=== PATIENT | female | born 1955 | race Hispanic/Latino ===

== ENCOUNTER 2017-09-28 18:13 | Emergency (ER) | payer OTHER ==
[2017-09-28 20:02] LABS: Basophils # (Auto) 0.1 K/mm3 (0.0-0.1); Basophils % (Auto) 0.7 % (0.0-1.8); Eosinophils # (Auto) 0.1 K/mm3 (0.0-0.4); Eosinophils % (Auto) 1.4 % (0.0-4.3); Hematocrit 20.3 % (30.3-42.9); Hemoglobin 6.6 gm/dl (10.1-14.3); Lymphocytes # (Auto) 1.6 K/mm3 (1.2-5.4); Lymphocytes % (Auto) 22.8 % (13.4-35.0); Mean Corpuscular HGB Conc 32 % (30-34); Monocytes # (Auto) 0.5 K/mm3 (0.0-0.8); Monocytes % (Auto) 6.9 % (0.0-7.3); Platelet Count 278 K/mm3 (140-440); Red Blood Count 3.03 M/mm3 (3.65-5.03); Red Cell Distribution Width 18.5 % (13.2-15.2)
[2017-09-28 20:03] LABS: Mean Corpuscular Hemoglobin 22 pg (28-32); Mean Corpuscular Volume 67 fl (79-97)
[2017-09-28 20:13] LABS: INR 1.01 (0.87-1.13)
[2017-09-28 20:17] LABS: Alanine Aminotransferase 9 units/L (7-56); Albumin 3.9 g/dL (3.9-5)
[2017-09-28 20:33] LABS: BUN/Creatinine Ratio 20; Blood Urea Nitrogen 12 mg/dL (7-17); Calcium 8.9 mg/dL (8.4-10.2); Hemolysis Index 0; Lipase 17 units/L (13-60)
--- NOTE | 2017-09-28 21:29 | Emergency Department Report ---
ED General Adult HPI - General Chief complaint: Chest Pain Stated complaint: ABNORMAL LABS Time Seen by Provider: 09/28/17 21:25 Source: patient Mode of arrival: Ambulatory Limitations: No Limitations - History of Present Illness Initial comments: 61-year-old woman sent for treatment of severe anemia upon notification by her local physician's office several days ago, giving a history of chronic recurrent vaginal bleeding for the past 5-6 years since menopause, had first examination at a local clinic 1 week ago, and blood work at that time showed patient to be significantly anemic, patient was contacted Sunday, and presents today at recommendation of physician for emergency evaluation and treatment. She bleeds intermittently, but persistently on a recurrent basis, and has never had any prior gynecologic evaluation for this in the time since menopause, due to lack of insurance. She was have follow-up examination, because physician at the clinic had performed a Pap smear, which caused bleeding at that time, but bleeding has since stopped over the past 3 days. Patient has secondary symptoms of chronic lightheadedness, particularly when she stands, she gets intermittent chest pains as well, both at rest and with standing. intake vital signs noted be stable with temperature 98.1, vital signs were stable with blood pressure of 123/59, pulse rate 103, respiratory rate 20, 100% oxygenation on room air. She is experiencing no difficulties at this time, has not had any bleeding for several days. Past medical history significant for type 2 diabetes mellitus, patient is also hypertensive. She has no prior gastrointestinal history, other than symptoms typical of gastroparesis, for which she has had endoscopy by addictions counselor approximately 8 years ago, which was negative, no history of gastritis or ulcers , and she has also had colonoscopy with no findings of tumors, diverticulitis, or diverticuli. She gives no history of hematemesis, no melena, no hematochezia. - Related Data Previous Rx's Medication Instructions Recorded Last Taken Type Ciprofloxacin HCl [Cipro] 500 mg PO BID #20 tablet 09/29/17 Unknown Rx Allergies Allergy/AdvReac Type Severity Reaction Status Date / Time No Known Allergies Allergy Verified 09/28/17 23:42 ED Review of Systems ROS: Stated complaint: ABNORMAL LABS Other details as noted in HPI ED Past Medical Hx - Past Medical History Previous Medical History?: Yes Hx Hypertension: Yes Hx Diabetes: Yes Additional medical history: Anemia - Surgical History Past Surgical History?: Yes Hx Cholecystectomy: Yes Additional Surgical History: B/L hip eplacement, C sec X2 - Social History Smoking Status: Never Smoker Substance Use Type: None - Medications Home Medications: Home Medications Medication Instructions Recorded Confirmed Last Taken Type Ciprofloxacin HCl [Cipro] 500 mg PO BID #20 tablet 09/29/17 Unknown Rx ED Physical Exam - General Limitations: No Limitations ED Course Vital Signs 09/28/17 09/28/17 09/28/17 19:23 21:16 22:00 Temperature 36.7 C 36.8 C Pulse Rate 103 H 99 H 91 H Respiratory 20 16 17 Rate Blood Pressure 123/59 133/49 Blood Pressure 133/49 [Left] O2 Sat by Pulse 100 100 100 Oximetry 09/29/17 09/29/17 09/29/17 00:30 00:45 01:15 Temperature 37.0 C 37.0 C 36.9 C Pulse Rate 100 H 100 H 94 H Respiratory 16 17 15 Rate Blood Pressure 129/45 113/55 128/43 Blood Pressure [Left] O2 Sat by Pulse 100 100 100 Oximetry 09/29/17 09/29/17 09/29/17 01:45 01:57 02:12 Temperature 36.8 C 36.8 C 36.8 C Pulse Rate 91 H 91 H 89 Respiratory 17 17 19 Rate Blood Pressure 122/44 122/44 115/54 Blood Pressure [Left] O2 Sat by Pulse 100 100 100 Oximetry 09/29/17 09/29/17 09/29/17 02:27 02:57 03:27 Temperature 36.8 C 36.8 C 36.8 C Pulse Rate 96 H 91 H 90 Respiratory 17 15 16 Rate Blood Pressure 112/55 119/61 121/59 Blood Pressure [Left] O2 Sat by Pulse 100 100 100 Oximetry 09/29/17 04:06 Temperature 36.8 C Pulse Rate 92 H Respiratory 17 Rate Blood Pressure 122/55 Blood Pressure [Left] O2 Sat by Pulse 100 Oximetry ED Medical Decision Making - Lab Data Result diagrams: 09/28/17 19:35 09/28/17 19:35 - EKG Data -: EKG Interpreted by Me (sinus tachycardia noted on EKG, pulse rate 104, but otherwise no significan) EKG shows normal: sinus rhythm, axis (normal QRS axis at 88), intervals ( normal QT interval at 440 milliseconds corrected, normal VA interval), QRS complexes (QRS complex is normal), ST-T waves (nonspecific ST-T wave flattening , no significant elevations or depressions,) - EKG Data When compared to previous EKG there are: no significant change (prior tracing of 02/25/2016 was normal.) - Medical Decision Making Patient has had a significant anemia at examination, which corroborates her finding in the office, and was transfused with 2 units of packed cells, which she tolerated well with no acute reaction, and reportedly feels noticeably better. She is clinically stable, ready for discharge, and can follow with her clinic physician for further care based on the results of her Pap smear examination. She also has a urinary tract infection with clumping white cells, which would be suggestive of pyelonephritis, and she will be treated with ciprofloxacin, with initial dose of Levaquin provided in the emergency department prior to discharge.. Critical Care Time: No Critical care attestation.: If time is entered above; I have spent that time in minutes in the direct care of this critically ill patient, excluding procedure time. ED Disposition Clinical Impression: UTI (urinary tract infection), Pyelonephritis Anemia Qualifiers: Anemia type: iron deficiency Iron deficiency anemia type: chronic blood loss Qualified Code(s): D50.0 - Iron deficiency anemia secondary to blood loss ( chronic) Disposition: DC-01 TO HOME OR SELFCARE Is pt being admited?: No Does the pt Need Aspirin: No Condition: Stable Instructions: Iron Deficiency Anemia (ED) Prescriptions: Ciprofloxacin HCl [Cipro] 500 mg PO BID #20 tablet Referrals: PRIMARY CARE, [Primary Care Provider] - 3-5 Days Time of Disposition: 04:36
[2017-09-28] MEDS ORDERED: NACL 0.9% 500 ML 500 ML IV ONE (22:45)
[2017-09-28] MEDS ORDERED: NACL 0.9% 1000 ML 1,000 ML ONE (23:29)
[2017-09-29 01:16] LABS: Bacteria,Urine 4+ /HPF (Negative); Bilirubin,Urine NEG (Negative); Blood,Urine SM (Negative); Color,Urine Yellow (Yellow); Urobilinogen,Urine < 2.0 mg/dL (<2.0)
[2017-09-29 01:24] LABS: WBC,Urine > 182.0 /HPF (0.0-6.0)
[2017-09-29 04:06] VITALS: BP 122/55
[2017-09-29] MEDS ORDERED: LEVAQUIN PO ONE (05:01)
== END 2017-09-29 05:15 | disposition home or self-care (01) ==
LOC: ED 18:13
DX: D50.0 Iron deficiency anemia secondary to blood loss (chronic) (principal); N39.0 Urinary tract infection, site not specified; N10 Acute pyelonephritis; E11.9 Type 2 diabetes mellitus without complications; I10 Essential (primary) hypertension; Z86.2 Personal history of diseases of the blood and blood-forming organs and certain disorders involving the immune mechanism; Z90.49 Acquired absence of other specified parts of digestive tract
CPT/HCPCS: 36415; 36430; 80053; 81001; 83690; 84484; 85025; 85610; 85730; 86850; 86900; 86901; 86920; 93005; 93010; 96360; 96361; 99284; J7030; P9016

== ENCOUNTER 2017-11-06 10:43 | Inpatient (IN) | payer SELFPAY ==
--- NOTE | 2017-11-06 13:34 | Emergency Department Report ---
ED General Adult HPI - General Chief complaint: Vaginal Bleeding Stated complaint: VAG BLEEDING Time Seen by Provider: 11/06/17 13:29 Source: patient, family Mode of arrival: Wheelchair Limitations: No Limitations - History of Present Illness Initial comments: 62-year-old female with a history of diabetes, hypertension, and anemia presents with a complaint of weakness. Patient describes shortness of breath at rest as well as with exertional activity. Patient denies any chest pain. Patient has had no fever. Patient states that she has followed up with Dr. Khari Hill and has not been contacted regarding her having a D&C which had been discussed. Patient states that her vaginal bleeding has been persistent since mid September and had ceased 2 days ago. Patient denies any syncopal episodes. Patient complains of feeling lightheaded however. Patient states when having a bowel movement yesterday she noted blood in her stool as well. Patient denies any hematemesis however. - Related Data Previous Rx's Medication Instructions Recorded Last Taken Type Ciprofloxacin HCl [Cipro] 500 mg PO BID #20 tablet 09/29/17 Unknown Rx Allergies Allergy/AdvReac Type Severity Reaction Status Date / Time No Known Allergies Allergy Verified 09/28/17 23:42 ED Review of Systems ROS: Stated complaint: VAG BLEEDING Other details as noted in HPI Constitutional: malaise, weakness. denies: chills, fever Eyes: denies: eye pain, eye discharge, vision change ENT: denies: ear pain, throat pain Respiratory: denies: cough, shortness of breath, wheezing Cardiovascular: denies: chest pain, palpitations Endocrine: no symptoms reported Gastrointestinal: other (jaundice) Genitourinary: other (vaginal bleeding) Musculoskeletal: denies: back pain, joint swelling, arthralgia Skin: denies: rash, lesions Neurological: denies: headache, weakness, paresthesias Psychiatric: denies: anxiety, depression Hematological/Lymphatic: denies: easy bleeding, easy bruising ED Past Medical Hx - Past Medical History Hx Hypertension: Yes Hx Diabetes: Yes Additional medical history: Anemia - Surgical History Hx Cholecystectomy: Yes Additional Surgical History: B/L hip eplacement, C sec X2 - Social History Smoking Status: Never Smoker Substance Use Type: None - Medications Home Medications: Home Medications Medication Instructions Recorded Confirmed Last Taken Type Ciprofloxacin HCl [Cipro] 500 mg PO BID #20 tablet 09/29/17 Unknown Rx ED Physical Exam - General Limitations: No Limitations General appearance: alert, other (pale; uncomfortable; ) - Head Head exam: Present: atraumatic, normocephalic - Eye Eye exam: Present: normal appearance, other (pale conjunctiva) - ENT ENT exam: Present: mucous membranes dry - Neck Neck exam: Present: normal inspection, other (supple). Absent: lymphadenopathy - Respiratory Respiratory exam: Present: normal lung sounds bilaterally. Absent: respiratory distress - Cardiovascular Cardiovascular Exam: Present: regular rate, normal rhythm. Absent: systolic murmur, diastolic murmur, rubs, gallop - GI/Abdominal GI/Abdominal exam: Present: soft, normal bowel sounds - Rectal Rectal exam: Present: normal rectal tone, heme (-) stool (brown stool) - External exam: Present: normal external exam. Absent: bleeding - Extremities Exam Extremities exam: Present: normal inspection - Back Exam Back exam: Present: normal inspection - Neurological Exam Neurological exam: Present: alert, oriented X3 - Psychiatric Psychiatric exam: Present: normal affect, normal mood - Skin Skin exam: Present: warm, dry, intact, normal color. Absent: rash ED Course Vital Signs 11/06/17 11/06/17 11/06/17 11:00 13:33 13:46 Temperature 97.8 F Pulse Rate 106 H 107 H Respiratory 18 18 Rate Blood Pressure 172/62 O2 Sat by Pulse 100 97 Oximetry 11/06/17 11/06/17 11/06/17 14:01 14:15 14:18 Temperature 97.8 F Pulse Rate 104 H 105 H Respiratory 11 L 14 Rate Blood Pressure 121/35 O2 Sat by Pulse 98 Oximetry ED Medical Decision Making - Lab Data Result diagrams: 11/06/17 13:44 11/06/17 13:44 - Medical Decision Making Patient is not having any active vaginal bleeding at the current time and has a guaiac test that was negative as well for active bleeding. patient is noted to have a hemoglobin which is 3.6 and patient type and cross for [address] Khari Hill [facility] occurred. Patient to be admitted to the hospitalist service for continued management and treatment. - Differential Diagnosis Anemia; Dehydration; Arrythmia; Critical Care Time: Yes Critical care time in (mins) excluding proc time.: 38 Critical care attestation.: If time is entered above; I have spent that time in minutes in the direct care of this critically ill patient, excluding procedure time. Critical Care time includes time spent on direct bedside care, frequent reassessments, and physician consultation. ED Disposition Clinical Impression: Pyelonephritis, Hyponatremia Anemia Qualifiers: Anemia type: unspecified type Qualified Code(s): D64.9 - Anemia, unspecified UTI (urinary tract infection) Qualifiers: Urinary tract infection type: acute cystitis Hematuria presence: without hematuria Qualified Code(s): N30.00 - Acute cystitis without hematuria Disposition: OP ADMIT IP TO THIS HOSP Is pt being admited?: Yes Condition: Fair Referrals: PRIMARY CARE, [Primary Care Provider] - 3-5 Days Time of Disposition: 14:50
[2017-11-06 14:01] LABS: Basophils # (Auto) 0.1 K/mm3 (0.0-0.1); Basophils % (Auto) 0.6 % (0.0-1.8); Eosinophils % (Auto) 0.1 % (0.0-4.3); Lymphocytes # (Auto) 2.5 K/mm3 (1.2-5.4); Lymphocytes % (Auto) 15.5 % (13.4-35.0); Mean Corpuscular HGB Conc 29 % (30-34); Monocytes % (Auto) 6.3 % (0.0-7.3); Platelet Count 365 K/mm3 (140-440); Red Blood Count 1.85 M/mm3 (3.65-5.03); Red Cell Distribution Width 19.4 % (13.2-15.2)
[2017-11-06 14:05] LABS: Bacteria,Urine 1+ /HPF (Negative); Bilirubin,Urine NEG (Negative); Blood,Urine SM (Negative); Color,Urine Yellow (Yellow); Mucus,Urine FEW /HPF; Protein,Urine <15 mg/dL mg/dL (Negative); Urobilinogen,Urine < 2.0 mg/dL (<2.0)
[2017-11-06 14:07] LABS: WBC,Urine > 182.0 /HPF (0.0-6.0)
[2017-11-06 14:14] LABS: INR 1.17 (0.87-1.13)
[2017-11-06 14:15] LABS: BUN/Creatinine Ratio 24; Blood Urea Nitrogen 22 mg/dL (7-17); Calcium 8.7 mg/dL (8.4-10.2); Hemolysis Index 0
[2017-11-06 14:19] LABS: Alanine Aminotransferase 6 units/L (7-56); Albumin 3.9 g/dL (3.9-5)
[2017-11-06 14:20] LABS: Bilirubin,Direct < 0.2 mg/dL (0-0.2); Hemoglobin 3.6 gm/dl (10.1-14.3)
[2017-11-06 14:21] LABS: Hematocrit 12.5 % (30.3-42.9); Mean Corpuscular Hemoglobin 19 pg (28-32); Mean Corpuscular Volume 68 fl (79-97)
--- NOTE | 2017-11-06 14:40 | History and Physical Report ---
History of Present Illness Chief complaint: Im bleeding, and I feel weak History of present illness: 62 YO Female with DM, HTN, Anemia presents to ED for evaluation. Pt states that she has experienced generalized weakness for the past 1 month, as well as vaginal bleeding for the past 3 weeks. Pt acknowledges decreased exercise tolerance, shortness of breath as well. Pt denies fever, chills, CP, Palpitations, NVD, Trauma, BRBPR, unintentional weight loss, night sweats, productive cough, or known recent ill contacts or foreign travel. PT seen and evaluated in ED and found to have UTI, Sepsis, Acidosis, and Symptomatic anemia. Pt admitted to medical floor and initiated on Sepsis protocol, and well as PRBC transfusion. Past History Past Medical History: diabetes, hypertension Past Surgical History: cholecystectomy, , total hip replacement Social history: , lives with family. denies: smoking, alcohol abuse, prescription drug abuse Family history: diabetes, hypertension Medications and Allergies Allergies Allergy/AdvReac Type Severity Reaction Status Date / Time No Known Allergies Allergy Verified 09/28/17 23:42 Home Medications Medication Instructions Recorded Confirmed Last Taken Type Insulin Glargine,Hum.rec.anlog 15 units SUB-Q HS 11/06/17 11/06/17 Unknown History [Lantus Solostar] Insulin Lispro [Humalog 100 0 units SUB-Q AC 11/06/17 11/06/17 Unknown History UNITS/ML Kwikpen] Lisinopril [Zestril] 20 mg PO QDAY 11/06/17 11/06/17 11/06/17 History Review of Systems Constitutional: weakness, lethargy, no weight loss, no weight gain, no chills Ears, nose, mouth and throat: no ear discharge, no tinnitis, no decreased hearing, no nose pain, no nasal congestion, no nasal discharge Cardiovascular: lightheadedness, shortness of breath, decreased exercise tolerance, no chest pain, no orthopnea, no rapid/irregular heart beat, no syncope, no paroxysmal nocturnal dyspnea Respiratory: no cough, no cough with sputum, no excessive sputum, no hemoptysis Gastrointestinal: no nausea, no vomiting, no diarrhea, no constipation Genitourinary Female: other (vaginal bleeding), no pelvic pain, no flank pain Rectal: no pain, no incontinence, no bleeding Musculoskeletal: no neck stiffness, no neck pain, no shooting arm pain, no arm numbness/tingling, no low back pain, no shooting leg pain Integumentary: no rash, no pruritis, no redness, no sores, no wounds Neurological: no transient paralysis, no paralysis, no weakness, no parathesias , no numbness, no tingling, no seizures Psychiatric: no anxiety, no memory loss, no change in sleep habits, no sleep disturbances, no insomnia, no hypersomnia Endocrine: no cold intolerance, no heat intolerance, no polyphagia, no excessive thirst, no polydipsia, no polyuria Hematologic/Lymphatic: no easy bruising, no easy bleeding, no lymphadenopathy, no lymphedema Allergic/Immunologic: no urticaria, no allergic rhinitis, no wheezing Exam - Constitutional Vitals: Temp Pulse Resp BP Pulse Ox 97.8 F 105 H 14 121/35 98 11/06/17 14:18 11/06/17 14:15 11/06/17 14:15 11/06/17 14:15 11/06/17 14:15 General appearance: Present: mild distress - EENT Eyes: Present: PERRL (conjunctival pallor) ENT: hearing intact, clear oral mucosa - Neck Neck: Present: supple, normal ROM - Respiratory Respiratory effort: normal Respiratory: bilateral: CTA - Cardiovascular Heart Sounds: Present: S1 & S2. Absent: rub, click - Extremities Extremities: pulses symmetrical, No edema Peripheral Pulses: within normal limits - Abdominal General gastrointestinal: Present: soft, non-tender, non-distended, normal bowel sounds Female genitourinary: Present: normal - Integumentary Integumentary: Present: clear, warm, dry, clammy, pale - Musculoskeletal Musculoskeletal: generalized weakness - Psychiatric Psychiatric: appropriate mood/affect, intact judgment & insight - Neurologic Neurologic: CNII-XII intact, moves all extremities Results - Labs CBC & Chem 7: 11/06/17 13:44 11/06/17 13:44 Labs: Abnormal lab results 11/06/17 11/06/17 11/06/17 Range/Units 13:34 13:44 13:44 WBC 15.8 H (4.5-11.0) K/mm3 RBC 1.85 L (3.65-5.03) M/mm3 Hgb 3.6 L* (10.1-14.3) gm/dl Hct 12.5 L* (30.3-42.9) % MCV 68 L (79-97) fl MCH 19 L (28-32) pg MCHC 29 L (30-34) % RDW 19.4 H (13.2-15.2) % Calvert # 1.0 H (0.0-0.8) K/mm3 Seg Neutrophils % 77.5 H (40.0-70.0) % Seg Neutrophils # 12.3 H (1.8-7.7) K/mm3 PT (12.2-14.9) Sec. INR (0.87-1.13) APTT (24.2-36.6) Sec. Sodium 133 L (137-145) mmol/L Chloride 94.4 L (98-107) mmol/L Carbon Dioxide 18 L (22-30) mmol/L BUN 22 H (7-17) mg/dL Glucose 331 H (65-100) mg/dL ALT (7-56) units/L Total Creatine Kinase (30-135) units/L Urine WBC (Auto) > 182.0 H (0.0-6.0) /HPF 11/06/17 11/06/17 11/06/17 Range/Units 13:44 13:44 13:44 WBC (4.5-11.0) K/mm3 RBC (3.65-5.03) M/mm3 Hgb (10.1-14.3) gm/dl Hct (30.3-42.9) % MCV (79-97) fl MCH (28-32) pg MCHC (30-34) % RDW (13.2-15.2) % Calvert # (0.0-0.8) K/mm3 Seg Neutrophils % (40.0-70.0) % Seg Neutrophils # (1.8-7.7) K/mm3 PT 15.5 H (12.2-14.9) Sec. INR 1.17 H (0.87-1.13) APTT 20.0 L (24.2-36.6) Sec. Sodium (137-145) mmol/L Chloride (98-107) mmol/L Carbon Dioxide (22-30) mmol/L BUN (7-17) mg/dL Glucose (65-100) mg/dL ALT 6 L (7-56) units/L Total Creatine Kinase 20 L (30-135) units/L Urine WBC (Auto) (0.0-6.0) /HPF Assessment and Plan - Patient Problems (1) Sepsis Current Visit: Yes Status: Acute Qualifiers: Sepsis type: sepsis due to unspecified organism Qualified Code(s): A41.9 - Sepsis, unspecified organism Plan to address problem: IV antibiotic therapy, monitor uop q shift, citation, serial lactic acid, blood cultures, chest x ray, urinalysis. (2) Acidosis Current Visit: Yes Status: Acute Plan to address problem: IVF resuscitation therapy, treat sepsis (3) Anemia Current Visit: Yes Status: Acute Qualifiers: Anemia type: unspecified type Qualified Code(s): D64.9 - Anemia, unspecified (4) UTI (urinary tract infection) Current Visit: Yes Status: Acute Qualifiers: Urinary tract infection type: acute cystitis Hematuria presence: without hematuria Qualified Code(s): N30.00 - Acute cystitis without hematuria Plan to address problem: IV antibiotic therapy, urinalysis, (5) DVT prophylaxis Current Visit: Yes Status: Acute Plan to address problem: SCD to BLE while in bed.
[2017-11-06] MEDS ORDERED: NACL 0.9% 1000 ML IV ONE (14:41)
[2017-11-06] MEDS ORDERED: ZOFRAN IV PRN (14:41)
[2017-11-06] MEDS ORDERED: PROVENTIL IH PRN (14:41)
[2017-11-06] MEDS ORDERED: SODIUM CHLORIDE FLUSH SYRINGE 10 ML IV PRN (14:41)
[2017-11-06] MEDS ORDERED: TYLENOL PO PRN (14:41)
[2017-11-06] MEDS ORDERED: ZOFRAN IV ONE (14:51)
[2017-11-06] MEDS ORDERED: MORPHINE IV ONE (14:51)
[2017-11-06] MEDS ORDERED: NACL 0.9% 500 ML 500 ML IV ONE (15:00)
[2017-11-06] MEDS ORDERED: NACL 0.9% 250ML 250 ML ONE (17:04)
--- NOTE | 2017-11-06 17:20 | Ultrasound Report ---
FINAL REPORT EXAM: US PELVIC COMPLETE HISTORY: vaginal bleeding TECHNIQUE: Grayscale and color doppler ultrasound imaging of the pelvis was performed transabdominally. PRIORS: None. FINDINGS: Uterus: The uterus was not well seen. The visualized portions demonstrate no evidence of focal mass. The width of the uterus measures 5.3 centimeters. The uterus was not well seen in longitudinal imaging. Endometrium: The endometrium was not seen. Ovaries: The ovaries were not seen. Free fluid: None. IMPRESSION: Limited transabdominal pelvic ultrasound.
--- NOTE | 2017-11-06 17:22 | Ultrasound Report ---
FINAL REPORT EXAM: US TRANSVAGINAL HISTORY: vaginal bleeidng TECHNIQUE: Grayscale and color doppler ultrasound imaging of the pelvis was performed transvaginally. PRIORS: None. FINDINGS: Uterus: Multiple calcifications are seen within the cervix and lower uterine segment. The uterus measures 8.2 x 3.7 x 4.8 centimeters. Endometrium: The endometrium is not well seen. Ovaries: The ovaries are normal in echogenicity without cyst or mass. Normal flow is seen to the ovaries. The right ovary measures 1.9 x 1.2 x 1.2 centimeters. The left ovary measures 2.2 x 1.3 x 1.3 centimeters. Free fluid: Trace amount of free fluid was seen. IMPRESSION: Calcifications in the lower uterine segment and cervix may be related to calcifying fibroids versus phleboliths. Endometrium not well seen. Minimal free fluid the pelvis is likely physiologic.
[2017-11-06] MEDS ORDERED: PERCOCET 5/325 PO ONE (17:32)
[2017-11-06] MEDS ORDERED: PERCOCET 5/325 ONE (17:39)
[2017-11-06] MEDS: SODIUM CHLORIDE FLUSH SYRINGE 10 ML IV SCH (22:52)
[2017-11-07 07:11] LABS: Hematocrit 21.3 % (30.3-42.9); Mean Corpuscular HGB Conc 33 % (30-34); Mean Corpuscular Volume 78 fl (79-97); Platelet Count 209 K/mm3 (140-440); Red Blood Count 2.74 M/mm3 (3.65-5.03)
[2017-11-07 07:13] LABS: Mean Corpuscular Hemoglobin 25 pg (28-32); Red Cell Distribution Width 22.6 % (13.2-15.2)
[2017-11-07 07:17] LABS: Basophils # (Auto) 0.1 K/mm3 (0.0-0.1); Basophils % (Auto) 0.8 % (0.0-1.8); Eosinophils # (Auto) 0.2 K/mm3 (0.0-0.4); Eosinophils % (Auto) 2.1 % (0.0-4.3); Lymphocytes # (Auto) 1.4 K/mm3 (1.2-5.4); Monocytes # (Auto) 0.7 K/mm3 (0.0-0.8); Monocytes % (Auto) 9.4 % (0.0-7.3)
[2017-11-07] MEDS: HumaLOG SUB-Q SCH ×4 (07:30→22:58)
[2017-11-07] MEDS: ROCEPHIN/NS 1 GM/50 ML 1 GM/50 ML BAG IV SCH ×2 (07:33→15:11)
[2017-11-07] MEDS: SODIUM CHLORIDE FLUSH SYRINGE 10 ML IV SCH ×2 (11:29→22:03)
[2017-11-07 14:31] LABS: Hematocrit 27.3 % (30.3-42.9); Hemoglobin 9.1 gm/dl (10.1-14.3)
[2017-11-07] MEDS ORDERED: PERCOCET 5/325 PO PRN (16:31)
--- NOTE | 2017-11-07 18:20 | Consultation ---
History of Present Illness Consult date: 11/07/17 Requesting physician: ARACELY PHIPPS Reason for consult: menorrhagia, other (Post menopausal bleeding) History of present illness: Pt is a 62yo WF LMP 10 years ago presents to ED for evaluation of post menopausal bleeding. Pt states that she has experienced generalized weakness for the past 1 month, as well as vaginal bleeding for the past 3 weeks. Pt acknowledges decreased exercise tolerance, shortness of breath as well. Pt denies fever, chills, CP, Palpitations, NVD, Trauma, BRBPR, unintentional weight loss, night sweats, productive cough, or known recent ill contacts or foreign travel. PT seen and evaluated in ED and found to have UTI, Sepsis, Acidosis, and Symptomatic anemia. She is admitted to medical floor and initiated on Sepsis protocol, and well as PRBC transfusion. Her admission H/H was 3.6/12.5 and now 9.1/27.3 after her blood transfusion, and is feeling much better. Her bleeding has subsided. She has been seeing me at [facility] and is scheduled for a Hysteroscopy with D&C for later this month. 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 History: fibroids Family/Genetic History: diabetes, hypertension Social history: no significant social history, Medications and Allergies Allergies Allergy/AdvReac Type Severity Reaction Status Date / Time No Known Allergies Allergy Verified 09/28/17 23:42 Home Medications Medication Instructions Recorded Confirmed Last Taken Type Insulin Glargine,Hum.rec.anlog 15 units SUB-Q HS 11/06/17 11/06/17 Unknown History [Lantus Solostar] Insulin Lispro [Humalog 100 0 units SUB-Q AC 11/06/17 11/06/17 Unknown History UNITS/ML Kwikpen] Lisinopril [Zestril] 20 mg PO QDAY 11/06/17 11/06/17 11/06/17 History Active Meds: Active Medications Acetaminophen (Tylenol) 650 mg PO Q4H PRN PRN Reason: Pain MILD(1-3)/Fever >100.5/RODRIGUEZ Last Admin: 11/07/17 12:53 Dose: 650 mg Albuterol (Proventil) 2.5 mg IH Q4HRT PRN PRN Reason: Shortness Of Breath Ceftriaxone Sodium (Rocephin/Ns 1 Gm/50 Ml) 1 gm in 50 mls @ 100 mls/hr IV Q24H [facility]; Protocol Last Admin: 11/07/17 15:11 Dose: 100 mls/hr Insulin Human Lispro (Humalog) 0 unit SUB-Q ACHS [facility]; Protocol Last Admin: 11/07/17 17:30 Dose: 4 unit Ondansetron HCl (Zofran) 4 mg IV Q8H PRN PRN Reason: Nausea And Vomiting Oxycodone/Acetaminophen (Percocet 5/325) 1 tab PO Q6H PRN PRN Reason: Pain, Moderate (4-6) Last Admin: 11/07/17 17:29 Dose: 1 tab Sodium Chloride (Sodium Chloride Flush Syringe 10 Ml) 10 ml IV BID [facility] Last Admin: 11/07/17 11:29 Dose: 10 ml Sodium Chloride (Sodium Chloride Flush Syringe 10 Ml) 10 ml IV PRN PRN PRN Reason: LINE FLUSH Review of Systems All systems: negative - Vital Signs Vital signs: Vital Signs Temp Pulse Resp BP Pulse Ox 97.8 F 106 H 18 172/62 100 11/06/17 11:00 11/06/17 11:00 11/06/17 11:00 11/06/17 11:00 11/06/17 11:00 Temp Pulse Resp BP Pulse Ox 98.3 F 85 20 125/57 100 11/07/17 16:01 11/07/17 16:01 11/07/17 16:01 11/07/17 16:01 11/07/17 16:01 - Physical Exam Uterus: Positive: enlarged Results Result Diagrams: 11/07/17 14:08 11/06/17 13:44 Abnormal lab results 11/06/17 11/07/17 11/07/17 Range/Units 13:44 02:19 06:55 RBC 2.74 L (3.65-5.03) M/mm3 Hgb 7.0 L D (10.1-14.3) gm/dl Hct 21.3 L D (30.3-42.9) % MCV 78 L (79-97) fl MCH 25 L (28-32) pg RDW 22.6 H (13.2-15.2) % [place] % (Auto) 9.4 H (0.0-7.3) % POC Glucose 218 H (70-105) Crossmatch See Detail 11/07/17 11/07/17 11/07/17 Range/Units 07:43 12:13 14:08 RBC (3.65-5.03) M/mm3 Hgb 9.1 L (10.1-14.3) gm/dl Hct 27.3 L D (30.3-42.9) % MCV (79-97) fl MCH (28-32) pg RDW (13.2-15.2) % [place] % (Auto) (0.0-7.3) % POC Glucose 190 H 240 H (70-105) Crossmatch 11/07/17 Range/Units 16:02 RBC (3.65-5.03) M/mm3 Hgb (10.1-14.3) gm/dl Hct (30.3-42.9) % MCV (79-97) fl MCH (28-32) pg RDW (13.2-15.2) % [place] % (Auto) (0.0-7.3) % POC Glucose 260 H (70-105) Crossmatch All other labs normal. Ultrasound: report reviewed Assessment and Plan - Patient Problems (1) Post-menopausal bleeding Onset Date: 11/07/17 Current Visit: Yes Status: Acute Plan to address problem: A: Symptomatic anemia - most likely due to post menopausal bleeding Post menopausal bleeding Uterine fibroids P: Agree with admission for blood transfusion She can follow up in the office upon discharge to move up her scheduled Hysteroscopy and D&C She may need a Hysterectomy Above findings discussed with pt. She agrees with the plan of care. (2) Anemia Onset Date: 11/07/17 Current Visit: Yes Status: Chronic Qualifiers: Anemia type: unspecified type Qualified Code(s): D64.9 - Anemia, unspecified (3) UTI (urinary tract infection) Onset Date: 11/07/17 Current Visit: Yes Status: Acute Qualifiers: Urinary tract infection type: acute cystitis Hematuria presence: without hematuria Qualified Code(s): N30.00 - Acute cystitis without hematuria
--- NOTE | 2017-11-07 22:01 | Progress Note ---
Assessment and Plan Assessment and plan: CC: I' m bleeding, and I feel weak 62 YO Female with DM, HTN, Anemia presents to ED for evaluation. Pt states that she has experienced generalized weakness for the past 1 month, as well as vaginal bleeding for the past 3 weeks. -she was planned for D and C by Dr Khari Hill Past History Past Medical History: diabetes, hypertension Sepsis/UTI obtain urine cx, cont abx Acute blood loss Anemia due to Post menopausal Vaginal bleeding endometrium not well visualized on pelvic and transvag US -LIFT DRIVER consulted, may need hystoroscopy? -sp 4 units of prbc History Interval history: denies cp, sob, fever of vomiting c/o vaginal bleeding and very painful pelvic cramps Hospitalist Physical - Constitutional Vitals: Temp Pulse Resp BP Pulse Ox 98.3 F 85 20 125/57 100 11/07/17 16:01 11/07/17 16:01 11/07/17 16:01 11/07/17 16:01 11/07/17 16:01 General appearance: Present: no acute distress - EENT Eyes: Present: PERRL ENT: hearing intact - Neck Neck: Present: supple - Respiratory Respiratory effort: normal Respiratory: bilateral: CTA - Cardiovascular Rhythm: regular Heart Sounds: Present: S1 & S2 - Extremities Extremities: no ischemia - Abdominal General gastrointestinal: soft, non-tender - Psychiatric Psychiatric: appropriate mood/affect, intact judgment & insight - Neurologic Neurologic: CNII-XII intact, moves all extremities Results - Labs CBC & Chem 7: 11/07/17 14:08 11/06/17 13:44 Labs: Laboratory Last Values WBC 7.5 K/mm3 (4.5-11.0) 11/07/17 06:55 RBC 2.74 M/mm3 (3.65-5.03) L 11/07/17 06:55 Hgb 9.1 gm/dl (10.1-14.3) L 11/07/17 14:08 Hct 27.3 % (30.3-42.9) L D 11/07/17 14:08 MCV 78 fl (79-97) L 11/07/17 06:55 MCH 25 pg (28-32) L 11/07/17 06:55 MCHC 33 % (30-34) 11/07/17 06:55 RDW 22.6 % (13.2-15.2) H 11/07/17 06:55 Plt Count 209 K/mm3 (140-440) 11/07/17 06:55 Lymph % (Auto) 19.0 % (13.4-35.0) 11/07/17 06:55 [place] % (Auto) 9.4 % (0.0-7.3) H 11/07/17 06:55 Eos % (Auto) 2.1 % (0.0-4.3) 11/07/17 06:55 Baso % (Auto) 0.8 % (0.0-1.8) 11/07/17 06:55 Lymph # 1.4 K/mm3 (1.2-5.4) 11/07/17 06:55 [place] # 0.7 K/mm3 (0.0-0.8) 11/07/17 06:55 Eos # 0.2 K/mm3 (0.0-0.4) 11/07/17 06:55 Baso # 0.1 K/mm3 (0.0-0.1) 11/07/17 06:55 Seg Neutrophils % 68.7 % (40.0-70.0) 11/07/17 06:55 Seg Neutrophils # 5.1 K/mm3 (1.8-7.7) 11/07/17 06:55 PT 15.5 Sec. (12.2-14.9) H 11/06/17 13:44 INR 1.17 (0.87-1.13) H 11/06/17 13:44 APTT 20.0 Sec. (24.2-36.6) L 11/06/17 13:44 Sodium 133 mmol/L (137-145) L 11/06/17 13:44 Potassium 4.3 mmol/L (3.6-5.0) 11/06/17 13:44 Chloride 94.4 mmol/L (98-107) L 11/06/17 13:44 Carbon Dioxide 18 mmol/L (22-30) L 11/06/17 13:44 Anion Gap 25 mmol/L 11/06/17 13:44 BUN 22 mg/dL (7-17) H 11/06/17 13:44 Creatinine 0.9 mg/dL (0.7-1.2) 11/06/17 13:44 Estimated GFR > 60 ml/min 11/06/17 13:44 BUN/Creatinine Ratio 24 % 11/06/17 13:44 Glucose 331 mg/dL (65-100) H 11/06/17 13:44 POC Glucose 210 (70-105) H 11/07/17 21:19 Lactic Acid 1.10 mmol/L (0.7-2.0) 11/06/17 21:16 Calcium 8.7 mg/dL (8.4-10.2) 11/06/17 13:44 Total Bilirubin 0.50 mg/dL (0.1-1.2) 11/06/17 13:44 Direct Bilirubin < 0.2 mg/dL (0-0.2) 11/06/17 13:44 Indirect Bilirubin 0.3 mg/dL 11/06/17 13:44 AST 15 units/L (5-40) 11/06/17 13:44 ALT 6 units/L (7-56) L 11/06/17 13:44 Alkaline Phosphatase 70 units/L (35-129) 11/06/17 13:44 Total Creatine Kinase 20 units/L (30-135) L 11/06/17 13:44 Troponin T < 0.010 ng/mL (0.00-0.029) 11/06/17 13:44 Total Protein 6.6 g/dL (6.3-8.2) 11/06/17 13:44 Albumin 3.9 g/dL (3.9-5) 11/06/17 13:44 Albumin/Globulin Ratio 1.4 % 11/06/17 13:44 Urine Color Yellow (Yellow) 11/06/17 13:34 Urine Turbidity Cloudy (Clear) 11/06/17 13:34 Urine pH 6.0 (5.0-7.0) 11/06/17 13:34 Ur Specific [place] 1.013 (1.003-1.030) 11/06/17 13:34 Urine Protein <15 mg/dl mg/dL (Negative) 11/06/17 13:34 Urine Glucose (UA) >=500 mg/dL (Negative) 11/06/17 13:34 Urine Ketones 20 mg/dL (Negative) 11/06/17 13:34 Urine Blood Sm (Negative) 11/06/17 13:34 Urine Nitrite Neg (Negative) 11/06/17 13:34 Urine Bilirubin Neg (Negative) 11/06/17 13:34 Urine Urobilinogen < 2.0 mg/dL (<2.0) 11/06/17 13:34 Ur Leukocyte Esterase Lg (Negative) 11/06/17 13:34 Urine WBC (Auto) > 182.0 /HPF (0.0-6.0) H 11/06/17 13:34 Urine RBC (Auto) 15.0 /HPF (0.0-6.0) 11/06/17 13:34 U Epithel Cells (Auto) 1.0 /HPF (0-13.0) 11/06/17 13:34 Urine Bacteria (Auto) 1+ /HPF (Negative) 11/06/17 13:34 Urine Mucus Few /HPF 11/06/17 13:34 Blood Type O POSITIVE 11/06/17 13:44 Antibody Screen Negative 11/06/17 13:44 Crossmatch See Detail 11/06/17 13:44
[2017-11-08 05:42] LABS: Basophils % (Auto) 0.6 % (0.0-1.8); Eosinophils # (Auto) 0.2 K/mm3 (0.0-0.4); Eosinophils % (Auto) 2.7 % (0.0-4.3); Hemoglobin 8.3 gm/dl (10.1-14.3); Lymphocytes # (Auto) 1.5 K/mm3 (1.2-5.4); Lymphocytes % (Auto) 20.4 % (13.4-35.0); Mean Corpuscular HGB Conc 33 % (30-34); Mean Corpuscular Hemoglobin 26 pg (28-32); Mean Corpuscular Volume 79 fl (79-97); Monocytes # (Auto) 0.5 K/mm3 (0.0-0.8); Monocytes % (Auto) 7.4 % (0.0-7.3); Platelet Count 230 K/mm3 (140-440); Red Blood Count 3.18 M/mm3 (3.65-5.03)
[2017-11-08 05:43] LABS: Red Cell Distribution Width 21.4 % (13.2-15.2)
[2017-11-08 06:14] LABS: BUN/Creatinine Ratio 19; Blood Urea Nitrogen 13 mg/dL (7-17); Calcium 8.7 mg/dL (8.4-10.2); Hemolysis Index 1
[2017-11-08] MEDS: HumaLOG SUB-Q SCH ×3 (07:30→17:18)
[2017-11-08] MEDS: SODIUM CHLORIDE FLUSH SYRINGE 10 ML IV SCH (09:20)
--- NOTE | 2017-11-08 15:09 | Discharge Summary ---
Providers - Providers Date of Admission: 11/06/17 14:42 Attending physician: ARACELY PHIPPS MD 11/07/17 16:41 Consult to Physician [CONS] Routine Comment: Consulting Provider: BARBARA COLLADO Physician Instructions: Reason For Exam: vag bleeding after D and C Primary care physician: COMPANY MANAGER Hospitalization Condition: Fair Exam - Constitutional Vitals: Temp Pulse Resp BP Pulse Ox 98.9 F 90 20 123/65 98 11/08/17 11:07 11/08/17 11:07 11/08/17 11:07 11/08/17 11:07 11/08/17 11:07 Plan Follow up with: JESSICA CRUZ MD [Primary Care Provider] - 3-5 Days BARBARA COLLADO MD [Staff Physician] - 7 Days Prescriptions: Multivitamin Tab [Multiple Vitamin TAB (Theragran)] 1 each PO QDAY #30 tablet oxyCODONE /ACETAMINOPHEN [Percocet 5/325 mg] 1 tab PO Q6H PRN #20 tablet PRN Reason: Pain, Moderate (4-6)
[2017-11-08] MEDS: ROCEPHIN/NS 1 GM/50 ML 1 GM/50 ML BAG IV SCH (16:00)
[2017-11-08 18:24] VITALS: BP 136/68
== END 2017-11-08 18:48 | disposition home or self-care (01) | DRG 872 ==
LOC: ED 10:43 → 3A 14:42
PROVIDERS: ADMIT Internal Medicine; ATTEND Internal Medicine
PROC: 30233N1 Transfusion of Nonautologous Red Blood Cells into Peripheral Vein, Percutaneous Approach (ICD-10-PCS; principal; 2017-11-06)
DX: A41.9 Sepsis, unspecified organism (principal); E87.1 Hypo-osmolality and hyponatremia; N12 Tubulo-interstitial nephritis, not specified as acute or chronic; D62 Acute posthemorrhagic anemia; N95.0 Postmenopausal bleeding; D64.9 Anemia, unspecified; E11.9 Type 2 diabetes mellitus without complications; I10 Essential (primary) hypertension; Z96.649 Presence of unspecified artificial hip joint; Z83.3 Family history of diabetes mellitus; Z82.49 Family history of ischemic heart disease and other diseases of the circulatory system; Z90.49 Acquired absence of other specified parts of digestive tract
CPT/HCPCS: 36415; 76830; 76856; 80048; 80074; 81001; 82140; 82550; 82962; 84484; 85014; 85018; 85025; 85610; 85730; 86850; 86900; 86901; 86920; 87040; 87116; 93005; 93010; 96374; 96375; J0696; J1815; J2270; J2405; J7030; J7050; P9016